=== PATIENT | male | born 1940 | race Caucasian/White ===

== ENCOUNTER → 2022-05-30 12:46 | Outpatient (REF) | payer MEDICARE, SELFPAY ==
--- NOTE | 2022-05-30 12:51 | CA_ITS ---
Transthoracic Echocardiogram Patient (Last, First, Middle): Jeff Ivey E Gender: Male Date of : 1940 Age: 81 Procedure Date: 05/30/2022 Procedure Type: Transthoracic Echocardiogram Location: [facility] Height: 167.64 cm Weight: 69.85 kg BSA: 1.79 m2 Heart Rate: bpm BP: 135 / 70 mmHg Change Control Analyst: TO/VH Referring MD: Radha Bee NP Symptoms: ABN EKG Study Quality: Fair ECG Rhythm: Sinus Conclusions: - The left ventricular systolic function is normal. The calculated ejection fraction is 58% by biplane method. - No obvious valvular pathology seen on this study. Findings Left Ventricle Normal left ventricular cavity size. There is normal left ventricular wall thickness. The left ventricular systolic function is normal. The calculated ejection fraction is 58% by biplane method. There is no evidence of regional wall motion abnormalities. Diastolic function is normal for age. Right Ventricle Normal right ventricular cavity size and systolic function. Atria Both atria are normal in size. Aortic Valve There is a normal trileaflet aortic valve. There is no aortic valve stenosis. There is trace (trivial) aortic valve regurgitation. Mitral Valve The mitral valve appears normal. There is no mitral valve regurgitation. There is no mitral valve stenosis. Pulmonic Valve The pulmonic valve is likely normal. Tricuspid Valve Normal tricuspid valve structure. There is trace tricuspid valve regurgitation. There is no evidence of pulmonary hypertension. Great Vessels The aortic annulus, sinuses of valsalva, and asc aorta are normal in size. Venous The inferior vena cava was not well visualized. Pericardium/Pleural There is no evidence of pericardial effusion. Prior Study Comparison No significant change compared to prior study. Recommendations, Care & Conclusions No obvious valvular pathology seen on this study. Measurements 2D Linear Measurements IVSd: 0.86 0.6-0.9/0.6-1.0 cm LVIDd: 3.92 3.9-5.3/4.2-5.9 cm LVIDd Index: 2.19 2.4-3.2/2.2-3.1 cm/m2 LVIDs: 2.37 2.0-3.6 cm LVPWd: 0.96 0.7-1.1 cm LA Diam: 2.70 2.7-3.8/3.0-4.0 cm LAIDs Index: 1.51 1.5-2.3 cm/m2 LV Mass: 134.66 67-162/88-224 g LV Mass Index: 75.23 43-95/49-115 g/m2 LVOT Diam: 1.80 3.0+(-)1.3 cm 2D Systolic Function EF 4C: 56.80 >55% EF 2C: 61.20 >55% EF BiP: 57.90 >55% Mitral Valve MV Pk E: 0.69 MV PK A: 0.83 MV Decel Time: 221.00 E/A: 0.80 E'Lateral: 6.53 E'Medial: 6.53 E/E' Med: 10.60 E/E' Lat: 10.60 PHT: 65.00 MVA PHT: 3.38 Decel [place]: 3.15 Aortic Valve AoV Pk Sergio: 1.46 AoV Mn Sergio: 1.03 AoV VTI: 0.27 AoV Pk Grad: 9.00 Aov Mn Grad: 5.00 CELESTE Cont.VTI: 2.42 LVOT LVOT Pk Sergio: 1.36 LVOT Mn Sergio: 0.96 LVOT VTI: 0.26 LVOT Pk Grad: 7.00 LVOT Mn Grad: 4.00 LVOT Diam: 1.80 LVOT Area: 2.54 Diastolic Function MV Pk E: 0.69 MV Pk A: 0.83 E/A: 0.80 E'Medial: 6.53 E/E' Med: 10.60 E' Laterial: 6.53 E/E' Lat: 10.60 Right Ventricle TAPSE (mm): 23.00 TVS' Sergio: 12.00 Tricuspid Valve TR Pk Sergio: 1.70 TR Pk Grad: 12.00 RA Press: 3.00 RVSP: 15.00 Great Vessels Aorta Sinus of Valsalva: 3.57 2.0-3.[address] [place]: 2.99 1.7-3.4 cm Ao Asc: 3.10 2.1-3.4 cm Updated in Other Vendor System with Status of Final Donald Beavers MD electronically signed on 05/31/2022 9:24:23 AM with status of Final
== END ==
LOC: HO.CARD 12:46
PROVIDERS: PCP Internal Medicine; Visit Provider Nurse Practitioner Family
DX: R94.31 Abnormal electrocardiogram [ECG] [EKG] (principal)
CPT/HCPCS: 93306